=== PATIENT | female | born 1965 | race Two or more races ===

== ENCOUNTER → 2016-12-02 | Outpatient (CLI) | payer OTHER ==
--- NOTE | 2016-12-02 18:09 | RADRPT ---
Echocardiogram Report Patient Name: KALEN CERVANTES Gender: Female Date: 1965 Study Date: 02-Dec-2016 Audiovisual Equipment Operator: JOSE ALFREDO TREJO Location: EKG Ref. Physician: EMY WILSON Quality: Good Procedures: Transthoracic echocardiogram with complete 2D, M-Mode, and doppler examination. Indications: Breast CA. 2D/M Mode Doppler Measurement Value Normal Ranges Measurement Value Normal Ranges LVIDd 2D 4.4 3.5 - 5.6 cm AV Peak Jose Raul 1.8 m/sec LVIDs 2D 2.9 2.1 - 4.1 cm AV Peak PG 13.0 mmHg FS 2D 34.1 % LVOT Peak Jose Raul 1.2 m/sec LVPWd 2D 0.9 0.6 - 1.1 cm LVOT Peak PG 6.0 mmHg IVSd 2D 1.0 0.6 - 1.1 cm MV E Peak Jose Raul 0.9 m/sec IVS/LVPW 2D 1.1 MV A Peak Jose Raul 1.0 m/sec AoR Diam 2D 2.6 2.0 - 3.7 cm MV E/A 0.9 EDV 2D 85.2 cm3 MV Decel Time 222 msec ESV 2D 24.4 cm3 MV E/A 0.9 TR Peak Jose Raul 2.2 m/sec TR Peak PG 20.0 mmHg Findings Left Ventricle: Normal left ventricular systolic function. Normal left ventricular cavity size. Normal left ventricular wall thickness. Ejection fraction is visually estimated at 65 - 70 %. Tissue Doppler/Mitral Doppler indices are consistent with impaired relaxation (Stage I diastolic dysfunction). Right Ventricle: Normal right ventricular size. Normal right ventricular systolic function. Left Atrium: The left atrium is normal in size. Right Atrium: The right atrium is normal in size. Mitral Valve: Normal appearance and function of the mitral valve with trace physiologic regurgitation. Aortic Valve: Normal appearance of the aortic valve. No significant aortic stenosis or insufficiency. Tricuspid Valve: Normal appearance of the tricuspid valve. Estimated peak PA systolic pressure 30 mmHg. There is mild tricuspid regurgitation. Pulmonic Valve: Normal pulmonic valve appearance. Pericardium: Normal pericardium with no significant pericardial effusion. Aorta: Normal aortic root. IVC: Normal size and normal respiratory collapse consistent with normal right atrial pressure. Conclusions 1.Normal left ventricular systolic function. Normal left ventricular cavity size. Normal left ventricular wall thickness. Ejection fraction is visually estimated at 65 - 70 %. Tissue Doppler/Mitral Doppler indices are consistent with impaired relaxation (Stage I diastolic dysfunction). 2.Normal appearance and function of the mitral valve with trace physiologic regurgitation. 3.Normal appearance of the aortic valve. No significant aortic stenosis or insufficiency. 4.Normal appearance of the tricuspid valve. Estimated peak PA systolic pressure 30 mmHg. There is mild tricuspid regurgitation. Electronically Signed By: Jaleel Inman 02-Dec-2016 18:08:13 -0700 Patient Name: KALEN CERVANTES Study Date: 02-Dec-2016 [id number]
== END | disposition home or self-care (01) ==
LOC: EKG 11:27 → EDSEX 11:27
PROVIDERS: ATTEND Internal Medicine Hematology & Oncology
DX: C50.919 Malignant neoplasm of unspecified site of unspecified female breast (principal)
CPT/HCPCS: 93306